=== PATIENT | male | born 1955 | race Caucasian/White ===

== ENCOUNTER 2020-06-14 23:29 | Emergency (ER) | payer OTHER, SELFPAY ==
[2020-06-14 23:34] VITALS: BP 148/87; PULSE 79; RESP 16; TEMP 36.2; O2SAT 93
--- NOTE | 2020-06-14 23:42 | PC.NURSE ---
Pt presents to ED with complaints of hives to trunk and pelvic area. Pt complaining of itching to hands, arms and feet. Pt states onset was yesterday morning. Denies changes in food and soap. 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 Pt able to speak without difficulty and breathing noted to be even and unlabored. Pt alert and oriented x4 and is present at bedside. EDMD presented to bedside.
[2020-06-15 00:01] VITALS: BP 95/62; PULSE 86; RESP 18; O2SAT 94
--- NOTE | 2020-06-15 00:24 | PC.NURSE ---
Pt assisted to restroom via wheelchair. Pt noted to desaturate to 87% on room air. Pt placed on 2 liters of O2 for support. Pt tolerating well with O2 saturation of 95%. Will continue to monitor. remains at bedside. Advised to press call button for assistance.
[2020-06-15 00:29] LABS: Basophils Percent Auto 0.2 % (0.2-1.2); Eosinophils Absolute Auto 0.2 K/mm3 (0-0.3); Eosinophils Percent Auto 1.8 % (0-4.4); Hematocrit 47.1 % (42.0-52.0); Hemoglobin 16.1 g/dL (14.0-18.0); Immature Granulocyte Absolute 0.05 K/mm3 (0.00-0.031); Immature Granulocyte Percent A 0.4 % (0-0.5); Lymphocytes Absolute Auto 3.55 K/mm3 (0.9-3.2); Lymphocytes Percent Auto 26.3 % (18.3-44.2); Mean Corpuscular HGB Conc 34.2 g/dl (32-36); Mean Corpuscular Hemoglobin 29.2 pg (26-34); Mean Corpuscular Volume 85.3 fl (80-100); Mean Platelet Volume 10.3 fl (7.4-10.4); Monocytes Absolute Auto 1.5 K/mm3 (0.1-0.6); Monocytes Percent Auto 10.7 % (2.6-8.5); Neutrophils Absolute Auto 8.2 K/mm3 (1.3-6.7); Neutrophils Percent Auto 60.6 % (45.5-73.1); Platelet Count Result 332 k/mm3 (150-375); Red Blood Count 5.52 M/mm3 (4.6-6.20); Red Cell Distribution Width 13.7 % (11.5-14.5); White Blood Count 13.5 K/mm3 (4.5-10.0)
[2020-06-15] MEDS: methylPREDNISolone SOD SUCC 125 MG VIAL IV PUSH (00:36)
[2020-06-15] MEDS: FAMOTIDINE 20 MG/2 ML VIAL IV PUSH (00:37)
[2020-06-15] MEDS: diphenhydrAMINE HCl INJ 50 MG/ML VIAL IV PUSH (00:37)
[2020-06-15 00:40] VITALS: BP 107/66; PULSE 70; RESP 14; O2SAT 94
[2020-06-15 00:40] LABS: Alanine Aminotransferase 24 U/L (4-50); Albumin Level 3.9 g/dL (3.5-5.1); Alkaline Phosphatase 46 U/L (38-126); Anion Gap 8 mmol/L (8-16); Aspartate Amino Transferase 25 U/L (17-59); Bilirubin,Total 1.3 mg/dL (0.2-1.3); Blood Urea Nitrogen 20 mg/dL (9-20); Calcium 8.6 mg/dL (8.4-10.2); Carbon Dioxide 28 mmol/L (22-30); Chloride 102 mmol/L (98-107); Estimated CRCL calculation 78 ml/min; Estimated Glomerular Filt Rate > 60; Glucose 197 mg/dL (75-110); Lipase 207 U/L (23-300); Potassium 3.1 mmol/L (3.4-5.0); Sodium 138 mmol/L (137-145)
[2020-06-15] MEDS: SODIUM CHLORIDE 0.9% IV 1,000 ML 999 ML IV CONT (00:44)
--- NOTE | 2020-06-15 01:29 | PC.NURSE ---
Pt resting on cart in its lowest position and remains at bedside. Call button and personal items within reach. Pt alert and oriented x4. Vitals stable and pt in no obvious distress. Advised to press call button for assistance.
[2020-06-15 01:37] VITALS: BP 138/77; PULSE 71; RESP 14; O2SAT 99
--- NOTE | 2020-06-15 02:23 | ED.GENADULT ---
HPI - General Adult General Chief complaint: Allergic Reaction Stated complaint: hives/ tongue swelling Time Seen by Provider: 06/14/20 23:42 History of Present Illness HPI narrative: Patient is a 64-year-old gentleman who presents the emergency department for complaint of itching and swelling in his tongue. Patient states also he has had some nausea and vomiting for the last several days and reported that in the last 24 hours initially noticed some redness and some itching on the palms of his hands now started having itching over his body and noticed the back of his tongue felt swollen. Related Data Allergies Allergy/AdvReac Type Severity Reaction Status Date / Time No Known Allergies Allergy Unverified 06/17/19 11:43 Review of Systems Review of Systems: Narrative: A 10 system review of systems was completed on the patient and is negative except for what is stated in the HPI. Nursing and ancillary documentation was reviewed. [facility] Past Medical History Medical History (Updated 06/15/20 @ 02:25 by Colt Hunter MD) Basal cell carcinoma of neck Essential (primary) hypertension Type 2 diabetes mellitus Family History Family History (Updated 09/13/18 @ 07:37 by DOCTOR UNKNOWN) Mother Hypertension Father Family history of lung cancer Social History Social History Smoking status: Never smoker Alcohol intake: never Exam Narrative: Exam Narrative: GENERAL: Well-appearing, well-nourished, and in no acute distress. HEAD: Normocephalic, atraumatic. EYES: PERRLA and EOMI. ENT: Nares clear, no rhinorrhea or epistaxis. Mucous membranes moist. NECK: Supple. CHEST: Clear to auscultation. No respiratory distress. HEART: Regular rate and rhythm. No murmur heard. Normal peripheral pulses. ABDOMEN: Soft, nontender, nondistended, normal active bowel sounds. EXTREMITIES: Normal range of motion. No edema. SKIN: Warm, dry, no there is erythema and urticaria present. NEURO: No focal deficits. Alert and oriented x3. PSYCH: Normal mood and affect. Course Course Emergency Course: Patient was hydrated received standard treatment for allergic reaction and patient had improvement in his symptoms. Vital Signs Vital signs: Vital Signs Temperature 36.2 C L 06/14/20 23:34 Pulse Rate 79 06/14/20 23:34 Respiratory Rate 16 06/14/20 23:34 Blood Pressure 148/87 H 06/14/20 23:34 Pulse Oximetry 93 06/14/20 23:34 Temperature 36.2 C L 06/14/20 23:34 Pulse Rate 70 06/15/20 00:40 Respiratory Rate 14 06/15/20 00:40 Blood Pressure 107/66 06/15/20 00:40 Pulse Oximetry 94 06/15/20 00:40 Medical Decision Making Vital Signs Vital Signs: Vital Signs Temperature 36.2 C L 06/14/20 23:34 Pulse Rate 79 06/14/20 23:34 Respiratory Rate 16 06/14/20 23:34 Blood Pressure 148/87 H 06/14/20 23:34 Pulse Oximetry 93 06/14/20 23:34 Temperature 36.2 C L 06/14/20 23:34 Pulse Rate 70 06/15/20 00:40 Respiratory Rate 14 06/15/20 00:40 Blood Pressure 107/66 06/15/20 00:40 Pulse Oximetry 94 06/15/20 00:40 Lab Data Result diagrams: 06/15/20 00:22 06/15/20 00:23 Labs: Lab Results 06/15/20 06/15/20 Range/Units 00:22 00:23 WBC 13.5 H (4.5-10.0) K/mm3 RBC 5.52 (4.6-6.20) M/mm3 Hgb 16.1 (14.0-18.0) g/dL Hct 47.1 (42.0-52.0) % MCV 85.3 (80-100) fl MCH 29.2 (26-34) pg MCHC 34.2 (32-36) g/dl RDW 13.7 (11.5-14.5) % Plt Count 332 (150-375) k/mm3 MPV 10.3 (7.4-10.4) fl Immature Gran % (Auto) 0.4 (0-0.5) % Neut % (Auto) 60.6 (45.5-73.1) % Lymph % (Auto) 26.3 (18.3-44.2) % Moore % (Auto) 10.7 H (2.6-8.5) % Eos % (Auto) 1.8 (0-4.4) % Baso % (Auto) 0.2 (0.2-1.2) % Lymph # (Auto) 3.55 H (0.9-3.2) K/mm3 Moore # (Auto) 1.5 H (0.1-0.6) K/mm3 Eos # (Auto) 0.2 (0-0.3) K/mm3 Baso # (Auto) 0.0 (0.0-0.1) K/mm3 Abs Immat Gran (auto) 0.05 H (0.00-0.031) K/mm3 Absol
--- NOTE | 2020-06-15 02:38 | PC.NURSE ---
Pt continues resting on cart with at bedside. Pt states he feels better and has been updated on poc. Neither he nor his has any questions or concerns at this time.
[2020-06-15 02:42] VITALS: BP 149/82; PULSE 79; RESP 15; O2SAT 95
[2020-06-15 02:49] VITALS: BP 149/82; PULSE 79; RESP 15; TEMP 36.9; O2SAT 95
--- NOTE | 2020-06-15 02:51 | PC.NURSE ---
Pt dc home with alert, stable and in no obvious distress. Pt able to ambulate from ED without difficulty.
== END 2020-06-15 02:51 | disposition home or self-care (01) ==
PROVIDERS: Emergency Provider Emergency Medicine; PCP Internal Medicine
DX: K52.9 Noninfective gastroenteritis and colitis, unspecified (principal); T78.40XA Allergy, unspecified, initial encounter; I10 Essential (primary) hypertension; E11.9 Type 2 diabetes mellitus without complications; Z79.4 Long term (current) use of insulin; Z85.828 Personal history of other malignant neoplasm of skin
CPT/HCPCS: 36415; 80053; 83690; 85025; 96361; 96374; 96375; 99284; J1200; J2930; J7030

== ENCOUNTER 2020-09-29 06:56 | Outpatient (CLI) | payer OTHER, SELFPAY ==
[2020-09-29 07:38] LABS: Alanine Aminotransferase 36 U/L (4-50); Albumin Level 4.1 g/dL (3.5-5.1); Alkaline Phosphatase 49 U/L (38-126); Anion Gap 7 mmol/L (8-16); Aspartate Amino Transferase 40 U/L (17-59); Bilirubin,Total 1.5 mg/dL (0.2-1.3); Blood Urea Nitrogen 20 mg/dL (9-20); Carbon Dioxide 33 mmol/L (22-30); Chloride 100 mmol/L (98-107); Cholesterol 119 mg/dL (0-200); Estimated Glomerular Filt Rate > 60; Glucose 163 mg/dL (75-110); HDL Direct 24 mg/dL; Potassium 3.5 mmol/L (3.4-5.0); Sodium 140 mmol/L (137-145); Triglycerides 234 mg/dL (<150)
[2020-09-29 07:47] LABS: Hemoglobin A1C 7.2 % (<5.7)
[2020-09-29 07:48] LABS: Basophils Percent Auto 0.5 % (0.2-1.2); Eosinophils Absolute Auto 0.2 K/mm3 (0-0.3); Eosinophils Percent Auto 2.9 % (0-4.4); Hematocrit 43.3 % (42.0-52.0); Hemoglobin 14.2 g/dL (14.0-18.0); Immature Granulocyte Absolute 0.03 K/mm3 (0.00-0.031); Immature Granulocyte Percent A 0.4 % (0-0.5); LDL Cholesterol Direct 46 mg/dL; Lymphocytes Absolute Auto 1.74 K/mm3 (0.9-3.2); Lymphocytes Percent Auto 23.2 % (18.3-44.2); Mean Corpuscular HGB Conc 32.8 g/dl (32-36); Mean Corpuscular Hemoglobin 28.9 pg (26-34); Mean Corpuscular Volume 88.2 fl (80-100); Mean Platelet Volume 10.4 fl (7.4-10.4); Neutrophils Absolute Auto 4.5 K/mm3 (1.3-6.7); Platelet Count Result 230 k/mm3 (150-375); Red Blood Count 4.91 M/mm3 (4.6-6.20); Red Cell Distribution Width 13.4 % (11.5-14.5); White Blood Count 7.5 K/mm3 (4.5-10.0)
== END 2020-09-29 06:57 | disposition home or self-care (01) ==
PROVIDERS: PCP Internal Medicine; Visit Provider Nurse Practitioner
DX: E11.9 Type 2 diabetes mellitus without complications (principal); I10 Essential (primary) hypertension
CPT/HCPCS: 36415; 80053; 80061; 83036; 85025

== ENCOUNTER 2020-12-08 09:52 | Observation (INO) | payer OTHER, SELFPAY ==
[2020-12-08] VITALS (15 sets, daily range): BP systolic 140–167; BP diastolic 78–94; PULSE 70–84; RESP 8–19; TEMP 36.5–36.8; O2SAT 93–99; BMI 32.3
--- NOTE | ~2020-12-08 | CT_ITS ---
EXAMINATION: CT brain wo con EXAM DATE: 12/08/2020 10:31 INDICATION: Facial droop. Drooling. Stroke. TECHNIQUE: Spiral CT of the head was performed without contrast. Axial, coronal and sagittal images were reviewed. The dose-length product (DLP) for this examination was 605.33 mGy-cm. The exposure w as tailored according to patient size, and iterative reconstruction (ASIR) was used as additional dos e reduction technique. There is no prior study for comparison. FINDINGS: There is no acute intraparenchymal hemorrhage. No evidence of intraparenchymal brain mass lesion. No evidence of acute infarction. Please note that initial head CT has limited sensitivity f or small or acute infarctions. There is mild periventricular and subcortical hypodensity, nonspecific but probably related to small vessel ischemic disease. There is mild prominence of the sulci and v entricles related to cerebral atrophy. There is intracranial carotid arteriosclerosis. There are n o extra-axial collections. There is no mass effect or midline shift. The orbits are unremarkable. Soft tissue is unremarkable. The visualized sinuses and mastoid air cells are well aerated. IMPRESSION: 1. No acute intracranial findings. 2. Chronic age related findings. Reviewed, dictated and finalized at location A.
--- NOTE | ~2020-12-08 | XR_ITS ---
EXAMINATION: XR chest 1V EXAM DATE: 12/08/2020 10:32 INDICATION: Facial droop, drooling. Stroke. TECHNIQUE: Portable AP frontal chest x-ray was obtained. There is no prior study for comparison. FINDINGS: Linear right basilar atelectasis. The lungs are otherwise clear. There are no pleural effu sions. The cardiomediastinal silhouette is within normal limits. There is no pneumothorax suspected . The bones and soft tissues are unremarkable. IMPRESSION: Linear right basilar atelectasis. Reviewed, dictated and finalized at location A.
--- NOTE | 2020-12-08 10:07 | ECG_ITS ---
Measurements Intervals [place] Rate: 72 P: 25 GA: 180 QRS: 11 QRSD: 110 T: 43 QT: 393 QTc: 430 Interpretive Statements SINUS RHYTHM NORMAL ECG Electronically Signed On 12-08-2020 11:25:48 CDT by Chon Castro D.O.
[2020-12-08 10:17] LABS: Basophils Absolute Auto 0.1 K/mm3 (0.0-0.1); Basophils Percent Auto 0.7 % (0.2-1.2); Eosinophils Absolute Auto 0.2 K/mm3 (0-0.3); Eosinophils Percent Auto 2.3 % (0-4.4); Hematocrit 43.8 % (42.0-52.0); Hemoglobin 14.9 g/dL (14.0-18.0); Immature Granulocyte Absolute 0.03 K/mm3 (0.00-0.031); Immature Granulocyte Percent A 0.4 % (0-0.5); Lymphocytes Absolute Auto 1.69 K/mm3 (0.9-3.2); Lymphocytes Percent Auto 20.8 % (18.3-44.2); Mean Corpuscular Hemoglobin 29.6 pg (26-34); Mean Corpuscular Volume 87.1 fl (80-100); Mean Platelet Volume 10.3 fl (7.4-10.4); Monocytes Absolute Auto 0.9 K/mm3 (0.1-0.6); Monocytes Percent Auto 10.6 % (2.6-8.5); Neutrophils Absolute Auto 5.3 K/mm3 (1.3-6.7); Neutrophils Percent Auto 65.2 % (45.5-73.1); Platelet Count Result 241 k/mm3 (150-375); Red Blood Count 5.03 M/mm3 (4.6-6.20); Red Cell Distribution Width 13.3 % (11.5-14.5); White Blood Count 8.1 K/mm3 (4.5-10.0)
[2020-12-08 10:28] LABS: Prothrombin Time 12.6 Seconds (11.1-14.7)
[2020-12-08 10:29] LABS: Partial Thromboplastin Time 25.2 SECONDS (22.3-36.8)
[2020-12-08 11:17] LABS: Anion Gap 15 mmol/L (8-16); Blood Urea Nitrogen 18 mg/dL (9-20); Calcium 8.6 mg/dL (8.4-10.2); Carbon Dioxide 25 mmol/L (22-30); Chloride 98 mmol/L (98-107); Estimated CRCL calculation 71 ml/min; Estimated Glomerular Filt Rate > 60; Glucose 299 mg/dL (65-110); Potassium 3.7 mmol/L (3.4-5.0); Sodium 138 mmol/L (137-145)
[2020-12-08 11:29] LABS: Troponin I < 0.012 ng/mL (0.000-0.034)
--- NOTE | 2020-12-08 13:33 | ED.NEUROSD ---
HPI - Neuro Symptoms/Deficit General Chief Complaint: Suspected CVA Stated Complaint: facial drooping 0900 Time Seen by Provider: 12/08/20 12:15 Source: patient and family Mode of arrival: ambulatory Limitations: no limitations History of Present Illness HPI Narrative: 64-year-old male History of hypertension, diabetes Presents for evaluation of new facial asymmetry and possible stroke Patient states that he was in normal health until yesterday when he noticed a small amount of drooling out of the right side of his mouth but no other difficulties Today his noticed a little bit of drooping of the right corner of his mouth while they were eating breakfast around 830 or 9:00 Again, he has no other complaints or symptoms and the asymmetry is really not noticeable at all if he smiles or opens his mouth Related Data Allergies Allergy/AdvReac Type Severity Reaction Status Date / Time No Known Allergies Allergy Unverified 12/08/20 10:10 Review of Systems Review of Systems: All systems reviewed & are unremarkable except as noted in HPI and below Constitutional: Constitutional: Reports no additional constitutional complaints, Denies chills, Denies fatigue, Denies fever(s) and Denies headache(s) Eyes: Eyes: Reports no additional eye complaints and Denies change in vision ENT: Denies headache(s) and Denies hoarseness Cardiovascular: Cardiovascular: Denies chest pain and Denies dyspnea Respiratory: Respiratory: Denies cough and Denies dyspnea Gastrointestinal: Gastrointestinal: Denies abdominal pain, Denies diarrhea and Denies vomiting Genitourinary: Genitourinary: Denies dysuria and Denies urinary frequency Musculoskeletal: Musculoskeletal: Denies deformity, Denies arthralgias, Denies joint swelling and Denies numbness Integumentary/Breasts: Skin/Breast: Denies rash and Denies wounds Neurologic: Denies Abnormal speech present, Denies abnormal gait, Denies headache(s), Denies focal weakness, Denies loss of vision, Denies numbness and Denies Sensory deficit (Neuro) Psychiatric: Psychiatric: Reports no additional psychiatric complaints Endocrine: Endocrine: Reports no additional endocrine complaints Hematologic/Lymphatic: Hematologic/Lymphatic: Reports no additional hematologic/lymphatic complaints Allergic/Immunologic: Allergic/Immunologic: Reports no additional allergic/immunologic complaints PMFSH Past Medical History Medical History (Updated 12/08/20 @ 13:44 by Jaswinder Silva MD) Basal cell carcinoma of neck Essential (primary) hypertension Hyperlipidemia Type 2 diabetes mellitus Family History Family History (Updated 09/13/18 @ 07:37 by DOCTOR UNKNOWN) Mother Hypertension Father Family history of lung cancer Social History Social History Smoking status: Never smoker Alcohol intake: never Exam Const: General: cooperative, no acute distress, alert and awake Orientation/consciousness: patient oriented x3 (alert) HENMT: Head: normocephalic and atraumatic Ears: external ears normal General nose exam: no epistaxis Face and sinus: Flattened naso-labial fold present Mouth: Yes Normal oral and palatal mucosa present Eyes: Conjunctivae: conjunctivae normal EOM: EOMs intact bilaterally Neck: Neck: normal visual inspection, full ROM, supple and no JVD Carotids: other (No bruits) Resp: Effort & Inspection: normal respiratory effort and not labored Auscultation: no rales, no rhonchi, no wheezes and other (BS =) Cardio: Rate: regular rate Rhythm: regular rhythm Heart sounds: no murmurs GI: GI Palp: Yes Soft to palpation and No Tenderness to palpation present (GI) Skin: General skin exam: normal color and no rashes or lesions noted Neuro: General: patient oriented x3 (alert), moves all extremities and other (Normal sensation to light touch) Cranial nerves: Yes Other cranial nerve findings present (Very slight flattening of the right nasolabial fold ) Speech: normal speech, No dys
--- NOTE | 2020-12-08 14:42 | PM.IMHP ---
H&P: HPI History of Present Illness Date/Time: 12/08/20 14:42 This 64 year old male patient with a significant PMH of DM, HTN, and HLD, presented to the ER today with complaints of having facial drooping. The pt. endorses to me that he went for a walk last evening and when he returned home, it was noted that he had a little bit of drool coming out of the right corner of his mouth. He thought he had allergies and was just mouth breathing and didn't notice the drool, and then this morning at 0900, his spouse noticed that the patient had a droop of the right corner of his mouth. He then began to feel that his tongue was thick. He denies any new foods, possible allergic reactions, tearing from the right eye, any headache, change in vision or hearing, chest pain, palpitations, dyspnea, N/V/D, or recent illness. Due to his significant PMH, they decided to come to the ER at this time for evaluation. The last known well time of the patient was prior to 0900 today, now 2 hours and 50 minutes from when his spouse first noted a droop of the mouth. In the ER, workup was peformed and the patient had unremarkable labs with the exception of an elevated glucose of 299, and what appears to be a chronic renal insufficiency with preserved GFR. CT of the head was negative for any acute hemorrhagic findings. CXR showed linear right basilar atelectasis. EKG showed NSR 72 bpm without any ectopy or ischemia. Review of his past chart shows that his last HgbA1C was on 09/29/20 and it was 7.2 at that time. He had his last eye exam in August of 2020. He is being admitted as an observation patient at this time and an MRI for definitive assessement is ordered to guide further treatment plan. Chief Complaint: Right sided facial drooping Review of Systems Review of Systems: All systems reviewed & are unremarkable except as noted in HPI and below [facility] Past Medical History Medical History Basal cell carcinoma of neck Essential (primary) hypertension Hyperlipidemia Type 2 diabetes mellitus Family History Family History Mother Hypertension Father Family history of lung cancer Social History Social History Smoking status: Never smoker Alcohol intake: never Meds Home Medications and Allergies Home Medications Medication Instructions Recorded Confirmed Type pen needle, diabetic 31 gauge x #500 ea 03/20/20 05/14/20 Rx 3/16 dulaglutide 3 mg/0.5 mL 3 mg SUBCUT WEEKLY #6 ml 05/14/20 05/14/20 Rx subcutaneous pen injector insulin glargine 100 unit/mL (3 70 unit SUB-Q QPM #60 ml 07/18/20 Rx mL) subcutaneous pen losartan 100 1 tablet PO DAILY #90 tablet 09/17/20 Rx mg-hydrochlorothiazide 12.5 mg tablet atorvastatin 40 mg tablet 40 mg PO DAILY #90 tablet 10/15/20 Rx glipizide 10 mg tablet 20 mg PO BID #360 tablet 10/15/20 Rx metformin 1,000 mg tablet 1,500 mg PO DAILY #225 tablet 11/06/20 Rx amlodipine 10 mg tablet 10 mg PO DAILY #90 tablet 11/14/20 Rx atenolol 50 mg tablet 50 mg PO DAILY #90 tablet 11/20/20 Rx Allergies Allergy/AdvReac Type Severity Reaction Status Date / Time No Known Allergies Allergy Unverified 12/08/20 10:10 Vital Signs Vital Signs - 24 hr 12/08/20 10:05 12/08/20 10:07 12/08/20 10:08 Temperature Pulse Rate 73 75 73 Respiratory Rate 18 13 14 Blood Pressure 167/94 H 167/94 H Pulse Oximetry 96 96 95 12/08/20 10:15 12/08/20 10:16 12/08/20 10:34 Temperature Pulse Rate 70 72 72 Respiratory Rate 13 18 13 Blood Pressure 140/82 Pulse Oximetry 95 94 95 12/08/20 10:35 12/08/20 10:45 12/08/20 11:00 Temperature Pulse Rate 73 72 71 Respiratory Rate 15 13 12 Blood Pressure 164/80 H Pulse Oximetry 96 93 93 12/08/20 11:15 12/08/20 11:16 12/08/20 11:32 Temperature Pulse Rate 73 72 84 Respiratory Rate 13 8
--- NOTE | 2020-12-08 16:34 | ADMGEN ---
This patient, Gold He, was admitted to 3 Med Surg Room 302-01. Patient/family oriented to hospital policies and general routines including ID bracelet, bed and alarms, visiting hours, pain management, procedures, bathroom and other care routines, personal items, smoking policy, room service/diet, and visiting hours. Information on how to activate the Rapid Response Team has been discussed. Patient/Family are encouraged to report perceived risks to care and to ask questions if they do not understand what they are told or what they should do.
[2020-12-08 16:57] LABS: Glucose Point of Care 115 mg/dl (65-105)
--- NOTE | 2020-12-08 19:20 | PC.NURSE ---
Brenda talked with patient. She discussed the benefit of staying for the echo and MRI tomorrow. Patient states that he is leaving. Olive stated that it would be against medical advise. Patient states that he understands. Patient states ride is here and is leaving floor.
--- NOTE | 2020-12-08 19:40 | PM.EVENT ---
Event Note Event Note Event Note: I was called into the room because the patient wanted to sign out against medical advice. The patient was very upset that he had not eaten all day and he is diabetic. There was the lunch box in his room that we offered him to E and the patient stated the ordered food and dietary forgot to bring it up. The patient was also upset that he did not get his home medications. I explained that Tresiba is non formulary and I also called pharmacy and for the patient in the room and they explained to him that we do not offer Tresiba here. I offered the patient the opportunity to have somebody bring it from home. I also explained that we are doing sliding scale insulin. I also explained that an MRI is scheduled for tomorrow and that we are holding his metformin due to the diet he will receive. The patient stated that he would go home tonight and eat and take his own medicine and that he would return in the morning 1st test. I explained that if he leaves that he would need to sign out against medical advice. I explained that I would not feel comfortable allowing the patient to be discharged at this point. I also explained that we do not have a neurologist available to him this weekend. The patient is requesting to see a neurologist. The patient does not understand why he did not have an MRI and ankle today. I explained that today is Thursday and that there may not be full services on the weekend. The patient stated that he plans on reporting the staff adverse here. I explained that there is a patient advocate line that he can call and he expresses concerns. We attempted to rectify his concerns without any resolution. The patient still continued disease going to sign out against medical advice. The patient then requested that he have the IV removed and is telemetry removed. Patient signed his paperwork for leaving against medical advice. The patient stated how can I get my MRI MT echo. I explained that he may need to talk to his primary care doctor.
== END 2020-12-08 19:23 | disposition left against medical advice (07) ==
LOC: ANHED 13:44 → ANH3MEDSUR 15:00
PROVIDERS: Emergency Medicine; Admitting Provider Internal Medicine Nephrology; Emergency Provider Emergency Medicine; PCP Internal Medicine; Visit Provider Internal Medicine Nephrology
DX: R29.810 Facial weakness (principal); E11.9 Type 2 diabetes mellitus without complications; I10 Essential (primary) hypertension; E78.5 Hyperlipidemia, unspecified; Z79.4 Long term (current) use of insulin
CPT/HCPCS: 36415; 70450; 71045; 80048; 82948; 84484; 85025; 85610; 85730; 93005; 99285; G0378

== ENCOUNTER 2020-12-09 07:45 | Inpatient (IN) | payer OTHER, SELFPAY ==
[2020-12-09] VITALS (19 sets, daily range): BP systolic 149–181; BP diastolic 78–86; PULSE 65–82; RESP 14–20; TEMP 36.6–36.8; O2SAT 94–98; BMI 32.3
--- NOTE | ~2020-12-09 | XR_ITS ---
EXAMINATION: XR chest 1V portable EXAM DATE: 12/09/2020 08:30 INDICATION: Slurred speech. Facial droop, drooling. TECHNIQUE: Portable AP frontal chest x-ray was obtained. Comparison is made to prior examination from 12/08. FINDINGS: Linear right basilar atelectasis. The lungs are otherwise clear. There are no pleural effu sions. The cardiomediastinal silhouette is within normal limits. There is no pneumothorax suspected . The bones and soft tissues are unremarkable. IMPRESSION: Linear right basilar atelectasis unchanged. Reviewed, dictated and finalized at location A.
--- NOTE | ~2020-12-09 | CT_ITS ---
EXAMINATION: CT diagnostic chest w con EXAM DATE: 12/10/2020 13:51 INDICATION: Adenopathy, identified on CT carotid angiogram. TECHNIQUE: Spiral CT of the chest following intravenous injection of 75 mL Omnipaque 350. Axial, cor onal and sagittal images of the chest were reviewed. Coronal maximum intensity pixel images of chest reviewed. The dose-length product (DLP) for this examination was 500.90 mGy-cm. The exposure was t ailored according to patient size (auto mA exposure control), and iterative reconstruction (ASIR) was used as additional dose reduction technique. There is no prior study for comparison. FINDINGS: There is mediastinal and bilateral hilar lymphadenopathy. Some of these lymph nodes have fa int calcification within, which is more common with granulomatous process than malignancy, although t reated lymphoma and rarely untreated metastatic disease can have this appearance. One of the larger l ymph nodes is precarinal measuring 2.4 x 2.0 cm. One of the larger right hilar lymph nodes measures 1 .8 x 1.3 cm. Prevascular lymph node measuring 1.6 x 1.0 cm. There is a right upper lobe nodule which could be intrafissural lymph node given the other lymph nodes, measuring 5 x 8 mm. No central pulmonary emboli. There are no pleural or pericardial effusions. Tracheobronchial tree is patent. There is no pneumothorax. Heart normal in size. There are dense coronary arteries, c ould be severe coronary arterial sclerosis and/or coronary artery stent(s), which are difficult to di stinguish due to cardiac motion on this non-gated exam. Correlate with cardiac history and consider c ardiology consult if not recently evaluated. Upper abdomen is unremarkable. There is mild thoracic spondylosis without osteoblastic or osteolytic lesions identified. IMPRESSION: Mediastinal, hilar lymphadenopathy. Favor benign granulomatous process over cancer for un derlying etiology. Possible management options include pulmonary consult, PET/CT, 3 month follow-up c hest CT. Reviewed, dictated and finalized at location B. IMPRESSION: Mediastinal, hilar lymphadenopathy. Favor benign granulomatous proc ess over cancer for underlying etiology. Possible management options include pu lmonary consult, PET/CT, 3 month follow-up chest CT.
--- NOTE | ~2020-12-09 | MR_ITS ---
EXAMINATION: MR brain/brain stem wo/w con EXAM DATE: 12/09/2020 13:55 INDICATION: Stroke. Slurred speech. Right facial droop. TECHNIQUE: Magnetic resonance imaging (MRI) of the brain/brain stem obtained without contrast. Sagit lala T1, axial diffusion, gradient echo (T2*), T1, T2, FLAIR sequences obtained. Patient was then inj ected with 20 cc intravenous Multihance contrast. Axial and coronal postcontrast T1 weighted sequence s obtained. Correlation is made to head angiogram earlier same date. FINDINGS: There is small acute left basal ganglia lacunar infarction. Mild microangiopathy and cerebr al atrophy. No brain mass, extra-axial collections, acute intracranial hemorrhage or obstructive hydr ocephalus. The orbits and soft tissues are unremarkable. There are no areas of abnormal enhancement o n the post contrast images. IMPRESSION: Left basal ganglia acute lacunar infarction. Reviewed, dictated and finalized at location A.
--- NOTE | ~2020-12-09 | CT_ITS ---
EXAMINATION: CTA brain carotid EXAM DATE: 12/09/2020 09:01 INDICATION: Facial droop, slurred speech. Stroke. TECHNIQUE: Noncontrast head CT. Spiral CTA of the carotid arteries was performed with intravenous i njection 100 cc of Omnipaque 350. Axial, coronal, sagittal reformatted images reviewed. Additional r eformatted images created on dedicated 3-D workstation. NASCET comparable standard used to assess th e degree of arterial stenosis. Spiral CT angiogram cerebral arteries performed with the same intrave nous injection of contrast. Source images of the brain CTA transferred to dedicated workstation for 3 -D rotational image creation. Coronal, sagittal maximum intensity pixel images also reviewed. The d ose-length product (DLP) for this examination was 1818.88 mGy-cm. The exposure was tailored accordi ng to patient size, and iterative reconstruction (ASIR) was used as additional dose reduction techniq ue. Comparison is made to prior examination from 12/08/2020, head CT. FINDINGS: There is small left basal ganglia lacunar hypodensity, more discrete than on yesterday's ex am. This is age lacunar infarction indeterminate, potentially could be an acute finding. No larger te rritorial infarction. No acute intracranial hemorrhage, extra-axial collections, brain mass or obstru ctive hydrocephalus. There is mild bilateral carotid bulb arterial sclerosis with 0% stenosis bilaterally. There is no car otid or vertebral basilar arterial dissection or fibromuscular dysplasia. There are no cerebral arter y aneurysms. There is symmetric cerebral artery arborization. The sagittal, transverse and sigmoid si nuses enhance normally, no venous sinus thrombosis. Internal cerebral veins also enhance normally. Incidental Findings: Mediastinal lymphadenopathy with a precarinal lymph node measuring 2.4 x 1.9 cm, other enlarged prevascular, mediastinal lymph nodes. Differential diagnosis includes lymphoma, metas tatic disease, sarcoidosis, reactive etiology. No cervical lymphadenopathy. Moderate cervical spondyl osis. IMPRESSION: 1. Better defined left basal ganglia lacunar infarction, possibly acute. Are patient's symptoms on t he right? 2. Mediastinal lymphadenopathy, possible underlying etiologies including lymphoma, metastatic diseas e, sarcoidosis, reactive from other granulomatous process or infection. 3. Bilateral carotid bulb 0% stenosis. Reviewed, dictated and finalized at location A. IMPRESSION: 1. Better defined left basal ganglia lacunar infarction, possibly acute. Are p atient's symptoms on the right? 2. Mediastinal lymphadenopathy, possible underlying etiologies including lymph osmin, metastatic disease, sarcoidosis, reactive from other granulomatous process or infection. 3. Bilateral carotid bulb 0% stenosis.
--- NOTE | ~2020-12-09 | US_ITS ---
EXAMINATION: US carotid duplex BI EXAM DATE: 12/10/2020 15:59 INDICATION: Left basal ganglia stroke. TECHNIQUE: Grayscale, color and pulsed Doppler images of the cervical carotid arteries were obtained . The degree of vessel stenosis is placed in one of the following categories: normal, <50% stenosis, 50-69% stenosis, >=70% stenosis but less than near-occlusion, near-occlusion, or occlusion. Note that percent stenosis relative to normal distal artery lumen diameter is indirectly measured from velocit y measurements as described by Russ, et al. Radiology 2003; 229:340-346. There is no prior study fo r comparison. FINDINGS: RIGHT SIDE: Right common carotid artery peak systolic velocity (PSV in cm/s): 105 Right bulb/internal carotid artery peak systolic velocity (PSV in cm/s): 74 Right internal carotid artery end diastolic velocity (EDV in cm/s): 21 Right ICA/CCA peak systolic ratio: 0.7 Right external carotid artery peak systolic velocity (PSV in cm/s): 92 Right vertebral artery antegrade flow: yes There is mild scattered carotid plaque. Velocity and Doppler waveforms in the common and internal carotid arteries is normal. LEFT SIDE: Left common carotid artery peak systolic velocity (PSV in cm/s): 130 Left bulb/internal carotid artery peak systolic velocity (PSV in cm/s): 85 Left internal carotid artery end diastolic velocity (EDV in cm/s): 19 Left ICA/CCA peak systolic ratio: 0.7 Left external carotid artery peak systolic velocity (PSV in cm/s): 112 Left vertebral artery antegrade flow: yes There is mild carotid bulb plaque. Velocity and Doppler waveforms in the common and internal carotid arteries is normal. IMPRESSION: 1. Less than 50 percent stenosis in the right internal carotid artery. 2. Less than 50 percent stenosis in the left internal carotid artery. > Reviewed, dictated and finalized at location B.
--- NOTE | 2020-12-09 08:17 | ECG_ITS ---
Measurements Intervals [place] Rate: 70 P: 14 TX: 197 QRS: -23 QRSD: 119 T: 46 QT: 402 QTc: 435 Interpretive Statements SINUS RHYTHM INTRAVENTRICULAR CONDUCTION DELAY DELAYED PRECORDIAL R/S TRANSITION BASELINE WANDER- II, III, AVR, AVF, V3-V6 BORDERLINE ECG Electronically Signed On 12-09-2020 12:05:29 CDT by Chon Castor D.O.
--- NOTE | 2020-12-09 08:19 | ED.NEUROSD ---
HPI - Neuro Symptoms/Deficit General Chief Complaint: Suspected CVA Stated Complaint: ?stroke? Time Seen by Provider: 12/09/20 08:16 Source: patient, RN notes reviewed and old records reviewed Mode of arrival: ambulatory Limitations: no limitations History of Present Illness HPI Narrative: Patient is 64 years old white male drove himself to the emergency room from home complaining of increased slurred speech and right facial drooping compared to yesterday. Patient had slight slurred speech and right facial drooping is started 2 days ago. Came to our emergency room yesterday and signed AMA. Patient believes that when he woke up this morning from sleep noticed that his slurred speech and right facial drooping is worse than yesterday. Patient also noticed that his signature is a little bit off but his gross motor is okay. Patient denies any tingling, numbness or focal weakness, dizziness, headache, chest pain or shortness of breath. Related Data Home Medications Medication Instructions Recorded Confirmed insulin glargine [Lantus Solostar 70 unit SUB-Q HS 12/08/20 12/08/20 U-100 Insulin] Allergies Allergy/AdvReac Type Severity Reaction Status Date / Time No Known Allergies Allergy Verified 12/09/20 07:54 Review of Systems Review of Systems: CONSTITUTIONAL: Denies fever, chills, or sweats. EYES: Denies visual changes, redness, or discharge. ENT: Denies rhinorrhea, congestion, sore throat, or otalgia. CARDIOVASCULAR: Denies chest pain, palpitations, or edema. RESPIRATORY: Denies cough or dyspnea. GASTROINTESTINAL: Denies abdominal pain, nausea, vomiting, or diarrhea. GENITOURINARY: Denies dysuria or hematuria. SKIN: Denies rash or itching. MUSCULOSKELETAL: Denies back pain, joint pain, or myalgia. NEUROLOGIC: Denies headache, numbness, or weakness. PSYCHIATRIC: Denies anxiety or depression. [facility] Past Medical History Medical History Basal cell carcinoma of neck Essential (primary) hypertension Hyperlipidemia Type 2 diabetes mellitus Family History Family History Mother Hypertension Father Family history of lung cancer Hypertension Social History Social History Smoking status: Never smoker Alcohol intake: never Substance use: never Spiritual care concerns: No Exam Narrative: General appearance: Well-developed, well-nourished Skin: Normal color Head: Normocephalic, nontraumatic Eyes: Clear conjunctiva ENT: Oropharynx normal, ears normal, nose normal Neck: Supple, nontender Chest and respiratory: Airway patent, no respiratory distress, no accessory muscle use Heart: Regular rate/rhythm Abdomen: Soft, nontender, no organomegaly, quiet bowel sounds Vascular: Normal peripheral pulses, normal capillary refill. Musculoskeletal: Normal range of motion, nontender back Neurologic: Alert and oriented ?3, [employer] is normal as tested, no gross motor deficit, mild right facial drooping, slurred speech, Course Course Emergency Course: Stable Vital Signs Vital signs: Vital Signs Temperature 36.8 C 12/09/20 07:47 Pulse Rate 80 12/09/20 07:47 Respiratory Rate 20 12/09/20 07:47 Blood Pressure 166/78 H 12/09/20 07:47 Pulse Oximetry 98 12/09/20 07:47 Temperature 36.8 C 12/09/20 07:47 Pulse Rate 67 12/09/20 10:45 Respiratory Rate 16 12/09/20 10:45 Blood Pressure 161/78 H 12/09/20 10:45 Pulse Oximetry 98 12/09/20 10:45 MDM - Neuro Symptoms/Deficit MDM Narrative Medical decision making narrative: Acute CVA Differential Diagnosis Differential di
[2020-12-09 08:46] LABS: Basophils Absolute Auto 0.1 K/mm3 (0.0-0.1); Basophils Percent Auto 0.6 % (0.2-1.2); Eosinophils Absolute Auto 0.1 K/mm3 (0-0.3); Eosinophils Percent Auto 0.8 % (0-4.4); Hematocrit 44.1 % (42.0-52.0); Hemoglobin 14.8 g/dL (14.0-18.0); Immature Granulocyte Absolute 0.04 K/mm3 (0.00-0.031); Immature Granulocyte Percent A 0.5 % (0-0.5); Lymphocytes Absolute Auto 1.35 K/mm3 (0.9-3.2); Lymphocytes Percent Auto 15.8 % (18.3-44.2); Mean Corpuscular HGB Conc 33.6 g/dl (32-36); Mean Corpuscular Volume 86.5 fl (80-100); Mean Platelet Volume 10.5 fl (7.4-10.4); Monocytes Absolute Auto 0.5 K/mm3 (0.1-0.6); Monocytes Percent Auto 6.2 % (2.6-8.5); Neutrophils Absolute Auto 6.5 K/mm3 (1.3-6.7); Neutrophils Percent Auto 76.1 % (45.5-73.1); Platelet Count Result 238 k/mm3 (150-375); Red Cell Distribution Width 13.2 % (11.5-14.5); White Blood Count 8.5 K/mm3 (4.5-10.0)
[2020-12-09 08:58] LABS: INR 0.9; Partial Thromboplastin Time 24.1 SECONDS (22.3-36.8); Prothrombin Time 12.5 Seconds (11.1-14.7)
[2020-12-09 08:59] LABS: Alanine Aminotransferase 38 U/L (4-50); Albumin Level 4.5 g/dL (3.5-5.1); Alkaline Phosphatase 57 U/L (38-126); Anion Gap 12 mmol/L (8-16); Aspartate Amino Transferase 37 U/L (17-59); Bilirubin,Total 1.6 mg/dL (0.2-1.3); Blood Urea Nitrogen 19 mg/dL (9-20); Carbon Dioxide 26 mmol/L (22-30); Chloride 98 mmol/L (98-107); Estimated CRCL calculation 85 ml/min; Estimated Glomerular Filt Rate > 60; Glucose 266 mg/dL (65-110); Potassium 3.6 mmol/L (3.4-5.0); Sodium 136 mmol/L (137-145)
[2020-12-09 09:06] LABS: Troponin I < 0.012 ng/mL (0.000-0.034)
[2020-12-09] MEDS: ASPIRIN 81 MG CHEWABLE TABLET 324 MG PO (11:41)
--- NOTE | 2020-12-09 12:51 | ADMGEN ---
This patient, Gold He, was admitted to 3 Med Surg Room 319-01. Patient/family oriented to hospital policies and general routines including ID bracelet, bed and alarms, visiting hours, pain management, procedures, bathroom and other care routines, personal items, smoking policy, room service/diet, and visiting hours. Information on how to activate the Rapid Response Team has been discussed. Patient/Family are encouraged to report perceived risks to care and to ask questions if they do not understand what they are told or what they should do.
--- NOTE | 2020-12-09 13:21 | PM.IMHP ---
H&P: HPI History of Present Illness Date/Time: 12/09/20 13:21 this is a 64-year-old male patient who was admitted yesterday and signed out against medical advice yesterday. The patient drove himself back to the emergency room today with increased slurred speech and increased right facial drooping. Yesterday's CT scan showed nothing acute. Today the head neck CTA was read as. 1Better defined left basal ganglia lacunar infarction, possibly acute. Are patient's symptoms on the right? 2. Mediastinal lymphadenopathy, possible underlying etiologies including lymphoma, metastatic disease, sarcoidosis, reactive from other granulomatous process or infection. 3. Bilateral carotid bulb 0% stenosis. The patient has had slurred speech and right facial drooping that started 2 days ago. The patient tells me that he did take 4 baby aspirin today. He also tells me that he has not eaten today and he is diabetic. His blood sugars 266. Chest x-ray was read as linear right basilar atelectasis unchanged. Patient is being admitted to inpatient services on the date of service of 12/09/2020 Chief Complaint: Right-sided droop Review of Systems Review of Systems: All systems reviewed & are unremarkable except as noted in HPI and below Constitutional: Constitutional: Reports as per HPI and Reports no additional constitutional complaints Eyes: Eyes: Reports as per HPI and Reports no additional eye complaints ENT: Reports system reviewed and no additional complaints, except as documented and Reports Normal hearing present Cardiovascular: Cardiovascular: Reports no additional cardiovascular complaints Respiratory: Respiratory: Reports no additional respiratory complaints and Reports no additional respiratory complaints Gastrointestinal: Gastrointestinal: Reports as per HPI and Reports no additional gastrointestinal complaints Musculoskeletal: Musculoskeletal: Reports no additional musculoskeletal complaints Integumentary/Breasts: Skin/Breast: Reports system reviewed and no additional complaints, except as docu and Reports as per HPI Neurologic: Reports system reviewed and no additional complaints, except as documented, Reports as per HPI and Reports Normal hearing present Psychiatric: Psychiatric: Reports no additional psychiatric complaints and Reports as per HPI Endocrine: Endocrine: Reports no additional endocrine complaints Hematologic/Lymphatic: Hematologic/Lymphatic: Reports no additional hematologic/lymphatic complaints Allergic/Immunologic: Allergic/Immunologic: Reports no additional allergic/immunologic complaints FOR[facility]LY [facility], [facility] Past Medical History Medical History (Updated 12/09/20 @ 13:36 by Brenda Massey NP) Basal cell carcinoma of neck Essential (primary) hypertension Hyperlipidemia Type 2 diabetes mellitus Surgical History Surgical History (Updated 12/09/20 @ 13:36 by Brenda Massey NP) H/O hand surgery Right pinky Family History Family History (Updated 12/09/20 @ 13:37 by Brenda Massey NP) Mother Hypertension Carotid artery disease Father Family history of lung cancer Hypertension Heart disease Acute myocardial infarction Social History Social History (Updated 12/09/20 @ 13:38 by Brenda Massey NP) Social History: The patient lives with his who is the durable power city attorney for healthcare. The patient desires to be a full code. The patient has no children. 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 The patient is a lifelong nonsmoker. He does not use any alcohol marijuana or illicit drugs. Smoking status: Never smoker Alcohol intake: never Substance use: never Spiritual care concerns: No Meds Home Medications and Allergies Home Medications Medication Instructions Recorded Confirmed Type pen needle, diabetic 31 gauge x #500 ea 03/20/20 05/14/20 Rx 3/16 dulaglutide 3 mg/0.5 mL 3 mg SUBCUT WEEKLY #6 ml 05/14/20 12/08/20 Rx subcutaneous pen injector losartan
--- NOTE | 2020-12-09 13:22 | PC.NURSE ---
to MRI per w/c
--- NOTE | 2020-12-09 17:11 | PHAR ---
[facility] PREFILLED SYRINGE
[2020-12-09 17:13] LABS: Glucose Point of Care 212 mg/dl (65-105)
[2020-12-09] MEDS: glipiZIDE 5 MG TABLET 20 MG PO (17:30)
[2020-12-09] MEDS: INSULIN ASPART (*BKC) 100 UNITS/ML SUB-Q (17:30)
[2020-12-09] MEDS: hydroCHLOROthiazide 12.5 MG CAPSULE PO (21:01)
[2020-12-09] MEDS: amLODIPine BESYLATE 5 MG TABLET 10 MG PO (21:01)
[2020-12-09] MEDS: INSULIN GLARGINE (*BKC) 100 UNITS/ML 70 UNITS SUB-Q (21:06)
[2020-12-10] VITALS (7 sets, daily range): BP systolic 156–165; BP diastolic 80–86; PULSE 56–82; RESP 16–20; TEMP 36.8–37.1; O2SAT 94–100
--- NOTE | 2020-12-10 | ECHO_ITS ---
Patient Info Name: Gold He Age: 64 years : 1955 Gender: Male Ht: 72 in Wt: 238 lbs BSA: 2.37 m2 HR: 69 bpm BP: 156 / 86 mmHg Technical Quality: Good Exam Date: 12/10/2020 11:35 AM Exam Location: [facility] Patient Status: Inpatient Admit Date: 12/09/2020 Staff Ordering Physician: Brenda Massey NP Applied Statistician: Sharon Pacheco RDCS Attending Provider: Андрей Echevarria MD Referring Physician: Shilpa TATE; Exam Type: CA echo doppler color flow Study Info Indications - CVA Complete two-dimensional, color flow and Doppler transthoracic echocardiogram is performed. Summary 1. Complete two-dimensional, color flow and Doppler transthoracic echocardiogram is performed. 2. Left ventricular chamber dimension is normal. 3. Left ventricular systolic function is normal, estimated at 65-70%. 4. There is mildly increased left ventricular wall thickness. 5. The left ventricular diastolic function is grade I diastolic dysfunction. 6. E/e' 9 is minimally elevated. 7. There is moderate aortic valve sclerosis. 8. There is trace tricuspid valve regurgitation. 9. No pulmonary hypertension, estimated pulmonary arterial systolic pressure is 17 mmHg. Left Ventricle E/e' 9 is minimally elevated. Left ventricular chamber dimension is normal. Left ventricular systolic function is normal, estimated at 65-70%. There is mildly increased left ventricular wall thickness. The left ventricular diastolic function is grade I diastolic dysfunction. Right Ventricle Right ventricular chamber dimension is normal. Right ventricular systolic function is normal. Left Atria Left atrial chamber dimension is normal. Right Atria Right atrial chamber dimension is normal. Aortic Valve The aortic valve is trileaflet. There is moderate aortic valve sclerosis. There is no aortic valve stenosis. There is no aortic valve regurgitation. Pulmonic Valve There is no pulmonic regurgitation. Mitral Valve There is no mitral valve stenosis. There is no mitral valve regurgitation. Tricuspid Valve There is trace tricuspid valve regurgitation. No pulmonary hypertension, estimated pulmonary arterial systolic pressure is 17 mmHg. Pericardium/Pleural There is no pericardial effusion. Inferior Vena Cava Normal inferior vena cava with >50% collapse upon inspiration consistent with normal right atrial pressure, 5 mmHg. Aorta The aortic root size at the sinus of Valsalva is normal. Left Ventricular Outflow Tract Name Value Normal LVOT 2D LVOT Diameter 2.1 cm LVOT Doppler LVOT Peak Gradient 4 mmHg LVOT Mean Gradient 3 mmHg LVOT VTI 21 cm LVOT VTI/AV VTI Ratio 0.8 LVOT Stroke Volume 72 ml LVOT CO 17.0 l/min LVOT CI 7.1 l/min/m2 Pulmonic Valve Name Value Normal
[2020-12-10 01:40] LABS: Glucose Point of Care 195 mg/dl (65-105)
[2020-12-10 06:57] LABS: Basophils Absolute Auto 0.1 K/mm3 (0.0-0.1); Basophils Percent Auto 0.7 % (0.2-1.2); Eosinophils Absolute Auto 0.2 K/mm3 (0-0.3); Eosinophils Percent Auto 2.2 % (0-4.4); Hematocrit 46.4 % (42.0-52.0); Hemoglobin 15.2 g/dL (14.0-18.0); Immature Granulocyte Absolute 0.04 K/mm3 (0.00-0.031); Immature Granulocyte Percent A 0.5 % (0-0.5); Lymphocytes Absolute Auto 1.89 K/mm3 (0.9-3.2); Mean Corpuscular HGB Conc 32.8 g/dl (32-36); Mean Corpuscular Hemoglobin 28.5 pg (26-34); Mean Corpuscular Volume 86.9 fl (80-100); Monocytes Absolute Auto 0.7 K/mm3 (0.1-0.6); Monocytes Percent Auto 9.8 % (2.6-8.5); Neutrophils Absolute Auto 4.7 K/mm3 (1.3-6.7); Neutrophils Percent Auto 61.8 % (45.5-73.1); Platelet Count Result 262 k/mm3 (150-375); Red Blood Count 5.34 M/mm3 (4.6-6.20); Red Cell Distribution Width 13.3 % (11.5-14.5); White Blood Count 7.6 K/mm3 (4.5-10.0)
[2020-12-10 07:02] LABS: Lactate Dehydrogenase 420 U/L (313-618); Magnesium 1.8 mg/dL (1.6-2.3)
[2020-12-10 08:06] LABS: Glucose Point of Care 183 mg/dl (65-105)
--- NOTE | 2020-12-10 08:49 | PM.CNPUL ---
Assessment and Plan Assessment and plan (1) Lymphadenopathy: Code(s): R59.1 - Generalized enlarged lymph nodes Status: Acute Assessment and Plan: Patient is a never smoker with no occupational risk factors and with no respiratory limitations in his activity of daily living and currently no respiratory symptoms suggestive of infection, cancer or connective tissue disease. He did have COVID in January of 2020. Patient was found to have mediastinal adenopathy on CT scan of the head and neck. I will obtain a high-resolution CT scan of the chest looking for any additional pathologic changes. Further recommendations to follow. History of Present Illness History of Present Illness Consult date: 12/10/20 Reason for consult: other (mediastinal adenopathy) Chief complaint: Acute CVA, Mediastinal Lymphadenopathy Narrative: 64-year-old male with a history of hypertension, diabetes, COVID in January of 2020, melanoma on his neck 3 years ago status post 2 Mohs procedures with clear margins who presents with a left basal ganglia stroke with altered speech, and lack of coordination in his right upper extremity. Patient had a CT of the head and neck demonstrating mediastinal lymphadenopathy. Patient states he has no respiratory limitations in his activities of daily living and is able to walk 3 miles without any shortness of breath. Patient denies any shortness of breath, cough, phlegm production, hemoptysis, chest pains. Patient denies any weight loss, rashes, arthritis. Patient denies previous chemotherapy or radiation. Patient denies any use of amiodarone or nitrofurantoin. Patient is a never smoker. Patient was exposed to secondhand smoke through both of his parents but none now. 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 Patient tells me he had skin cancer 3 years ago and had 2 Mohs procedures on his neck in which they removed the cancer and he tells me there were clean margins. Patient follows up with a drafter apprentice and recently had an atypical mole removed. Patient denies any chemotherapy or radiation. Review of Systems Review of Systems: All systems reviewed & are unremarkable except as noted in HPI and below Eyes: Eyes: Reports no additional eye complaints ENT: Reports system reviewed and no additional complaints, except as documented Cardiovascular: Cardiovascular: Reports no additional cardiovascular complaints Respiratory: Respiratory: Reports no additional respiratory complaints Gastrointestinal: Gastrointestinal: Reports no additional gastrointestinal complaints Musculoskeletal: Musculoskeletal: Reports no additional musculoskeletal complaints Integumentary/Breasts: Skin/Breast: Reports system reviewed and no additional complaints, except as docu Neurologic: Reports system reviewed and no additional complaints, except as documented Psychiatric: Psychiatric: Reports no additional psychiatric complaints Endocrine: Endocrine: Reports no additional endocrine complaints [facility] Past Medical History Medical History (Updated 12/09/20 @ 13:36 by Brenda Massey NP) Basal cell carcinoma of neck Essential (primary) hypertension Hyperlipidemia Type 2 diabetes mellitus Surgical History Surgical History (Updated 12/09/20 @ 13:36 by Brenda Massey NP) H/O hand surgery Right pinky Family History Family History (Updated 12/09/20 @ 13:37 by Brenda Massey NP) Mother Hypertension Carotid artery disease Father Family history of lung cancer Hypertension Heart disease Acute myocardial infarction Social History Social History (Updated 12/09/20 @ 13:38 by Brenda Massey NP) Social History: The patient lives with his who is the durable power employee benefits attorney for healthcare. The patient desires to be a full code. The patient has no child
[2020-12-10] MEDS: ATORVASTATIN 40 MG TABLET PO (08:56)
[2020-12-10] MEDS: LOSARTAN POTASSIUM 100 MG TABLET PO (08:56)
[2020-12-10] MEDS: glipiZIDE 5 MG TABLET 20 MG PO ×2 (08:56→16:45)
[2020-12-10 09:37] LABS: Free T4 Free Thyroxine Reflex 0.91 ng/dL (0.78-2.19)
[2020-12-10 10:04] LABS: Alanine Aminotransferase 40 U/L (4-50); Albumin Level 4.6 g/dL (3.5-5.1); Alkaline Phosphatase 56 U/L (38-126); Anion Gap 13 mmol/L (8-16); Aspartate Amino Transferase 35 U/L (17-59); Bilirubin,Total 1.7 mg/dL (0.2-1.3); Blood Urea Nitrogen 19 mg/dL (9-20); Calcium 9.4 mg/dL (8.4-10.2); Carbon Dioxide 30 mmol/L (22-30); Chloride 99 mmol/L (98-107); Estimated CRCL calculation 72 ml/min; Estimated Glomerular Filt Rate > 60; Glucose 134 mg/dL (65-110); Potassium 3.4 mmol/L (3.4-5.0); Sodium 142 mmol/L (137-145)
--- NOTE | 2020-12-10 10:08 | WPDNEURCNPN ---
Assessment and Plan Additional Plan subcortical stroke /on aspirin/ and plavix for 6 weeks/ Consult date: 12/10/20 Time Seen: 11:00 HPI: Gold He is a 64 year old male has been admitted to the hospital through the emergency room where he had signed out against medical advice earlier he came in for the complaints of increasing slurred speech and the drooping on the right side of the face his initial CT scan was negative but when he really admitted to the emergency room to the hospital CTA was abnormal with lacunar infarct of the left basal ganglia in addition he was found to have mediastinal lymph adenopathy on the chest x-ray but the ultrasound the carotid was negative patient basically admitted to the hospital for the complaints of slurred speech with right-sided facial drooping of 48 hours duration he did take the 4 baby aspirins and he is not known to be diabetic but his blood sugar was 266, in the past patient has ongoing history of the basal cell carcinoma of the neck, essential hypertension, hyperlipidemia, and type 2 diabetes mellitus. he is not a smoker or alcohol drinker, evaluation up until now included the MRI of the brain which as documented earlier revealed left basal ganglia acute lacunar infarct in addition to 0% stenosis of the bilateral carotid bulb but also incidental finding of mediastinal lymphadenopathy raising possibility of different etiology such as lymphoma metastatic sarcoidosis, chest x-ray is negative Review of Systems Review of Systems: All systems reviewed & are unremarkable except as noted in HPI and below PMFSH Past Medical History Medical History Basal cell carcinoma of neck Essential (primary) hypertension Hyperlipidemia Type 2 diabetes mellitus Surgical History Surgical History H/O hand surgery Right pinky Family History Family History Mother Hypertension Carotid artery disease Father Family history of lung cancer Hypertension Heart disease Acute myocardial infarction Social History Social History Social History: The patient lives with his who is the durable power welding machine operator friction for healthcare. The patient desires to be a full code. The patient has no children. 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 The patient is a lifelong nonsmoker. He does not use any alcohol marijuana or illicit drugs. Smoking status: Never smoker Alcohol intake: never Substance use: never Spiritual care concerns: No Meds Home Medications and Allergies Home Medications Medication Instructions Recorded Confirmed Type pen needle, diabetic 31 gauge x #500 ea 03/20/20 12/09/20 Rx 3/16 dulaglutide 3 mg/0.5 mL 3 mg SUBCUT WEEKLY #6 ml 05/14/20 12/09/20 Rx subcutaneous pen injector losartan 100 1 tablet PO DAILY #90 tablet 09/17/20 12/09/20 Rx mg-hydrochlorothiazide 12.5 mg tablet atorvastatin 40 mg tablet 40 mg PO DAILY #90 tablet 10/15/20 12/09/20 Rx glipizide 10 mg tablet 20 mg PO BID #360 tablet 10/15/20 12/09/20 Rx metformin 1,000 mg tablet 1,500 mg PO DAILY #225 tablet 11/06/20 12/09/20 Rx amlodipine 10 mg tablet 10 mg PO DAILY #90 tablet 11/14/20 12/09/20 Rx atenolol 50 mg tablet 50 mg PO DAILY #90 tablet 11/20/20 12/09/20 Rx insulin glargine [Lantus Solostar 70 unit SUB-Q HS 12/08/20 12/09/20 History U-100 Insulin] Allergies Allergy/AdvReac Type Severity Reaction Status Date / Time No Known Allergies Allergy Verified 12/09/20 13:00 Vital Signs Vital Signs - 24 hr 12/09/20 10:45 12/09/20 10:47 12/09/20 11:00 Temperature Pulse Rate 67 69 80 Respiratory Rate 16 14 18 Blood Pressure 161/78 H Pulse Oximetry 98 97 95 12/09/20 11:01 12/09/20 11:20 12/09/20 11:30 Temperature Pulse Rate 76 69 68 Respiratory Rate 20 18 14 Blood Pressure
[2020-12-10 10:44] LABS: Total Triiodothyronine (T3) 1.23 NG/ML (0.97-1.69)
[2020-12-10 12:22] LABS: Glucose Point of Care 252 mg/dl (65-105)
[2020-12-10] MEDS: ASPIRIN 81 MG CHEWABLE TABLET 324 MG PO (13:02)
[2020-12-10] MEDS: CLOPIDOGREL BISULFATE 75 MG TABLET PO (13:03)
[2020-12-10] MEDS: atenoloL 25 MG TABLET 75 MG PO (13:03)
[2020-12-10] MEDS: INSULIN ASPART (*BKC) 100 UNITS/ML SUB-Q (13:04)
--- NOTE | 2020-12-10 15:41 | PM.DS ---
DS: Admitting Diagnosis Discharge Date In service 12/10/2020 at 10:20 a.m. Admitting Diagnosis acute CVA DS: Discharge Diagnosis Discharge Diagnosis (1) Acute CVA (cerebrovascular accident): Code(s): I63.9 - Cerebral infarction, unspecified Status: Acute Assessment and Plan: Continue with the daily aspirin. Patient had a CT this time that did show that he does have a left basilar ganglia lacunar infarction. Patient is currently an MRI. Will get an echo tomorrow. Neurology has been consulted. PT OT and speech evaluation we greatly be appreciated. The patient does have some slurred speech. 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 We are holding his metformin since he had an MRI are and CT with contrast. Continue with glipizide and sliding scale insulin. Patient is to see but is non formulary. (4) HLD (hyperlipidemia): Code(s): E78.5 - Hyperlipidemia, unspecified Status: Chronic Assessment and Plan: Continue with atorvastatin (5) DVT prophylaxis: Code(s): Z29.9 - Encounter for prophylactic measures, unspecified Status: Acute Assessment and Plan: SCD (6) LAD (lymphadenopathy), mediastinal: Code(s): R59.0 - Localized enlarged lymph nodes Status: Acute Assessment and Plan: I discussed the findings with my collaborative who recommended that we consult Pulmonary to see if the patient can get a biopsy of the mediastinal enlarged lymph node. DS: Summary Hospital Course Hospital Course: Mr. He is a 64-year-old male with past medical history of diabetes and hypertension and COVID who presented the ED for facial drooping and right-sided weakness. Patient did have an MRI that showed he had an acute stroke which presented in the smaller vessels probably from high blood pressure. Patient stated that at home his blood pressure is usually around 140s and lower if he exercises. Patient's blood pressure throughout the visit has been 160s to 170 systolic over 85-95 diastolic. Patient did have a right-sided facial droop and did work with speech therapy. Speech therapy did work with his swallowing techniques and facial strength. Labs have all been normal throughout the visit. Head CT did show an acute stroke, echo showed an EF of 65 to 70%, Head and neck CTA showed 0% stenosis in the carotid bulb. Carotid ultra sounds showed less than 50%. Currently patient is walking around in the hallways. He is wanting some out patient speech therapy. He denies chest pain, shortness of breath, nausea, vomiting, abdominal pain, constipation, or diarrhea. Status at Discharge Functional status at discharge: independent ambulation Overall status at discharge: patient is back to baseline Time Spent with Patient Time attestation: Total time spent providing and/or coordinating discharge services: 25 minutes Time spent: Less than 30 minutes Exam Const: General: cooperative, healthy appearing, comfortable, no acute distress, well developed, alert, awake and Physically active Nutritional Appearance: average body habitus and well nourished Orientation/consciousness: oriented to person, oriented to place, oriented to time and patient oriented x3 Limitations: no limitations HENMT: Head: normal to inspection, No palpable skull fracture present, normocephalic, atraumatic and o
== END 2020-12-10 15:50 | disposition home or self-care (01) | DRG 66 ==
LOC: ANHED 11:12 → ANH3MEDSUR 13:30
PROVIDERS: Nurse Practitioner; Admitting Provider Internal Medicine; Emergency Provider Emergency Medicine; PCP Internal Medicine; Visit Provider Internal Medicine
DX: I63.9 Cerebral infarction, unspecified (principal); R29.810 Facial weakness; R29.702 NIHSS score 2; R59.0 Localized enlarged lymph nodes; E11.9 Type 2 diabetes mellitus without complications; I10 Essential (primary) hypertension; E78.5 Hyperlipidemia, unspecified; Z79.4 Long term (current) use of insulin; Z79.899 Other long term (current) drug therapy; Z85.828 Personal history of other malignant neoplasm of skin; Z86.16 Personal history of COVID-19
CPT/HCPCS: 36415; 70450; 70496; 70498; 70553; 71045; 71260; 80048; 80053; 82948; 83615; 83735; 84439; 84443; 84480; 84484; 85025; 85610; 85730; 92523; 93005; 93306; 93880; 97161; 97165; 99285; A9270; A9577; G0378; J1815; Q9967

== ENCOUNTER 2020-12-18 15:00 | Outpatient (RCR) | payer OTHER, SELFPAY ==
--- NOTE | 2020-12-18 15:04 | STOPEVAL ---
SPEECH THERAPY INITIAL EVALUATION AND DISCHARGE: Thank you for referring Gold He to [facility].? Upon completion of the speech evaluation, it has been determined no further ST is warranted as outlined below. Please review, sign, date and return this evaluation/discharge BARBARA. I agree with and certify that the following plan of care is medically necessary. Referring Physician Date Attending Provider: Vandana Solorzano NP Outpatient Past Medical History Neurological History Hx Cerebrovascular Accident (CVA) Yes: 12/09/20 Cardiovascular History Hx Hypertension Yes Respiratory History Hx Respiratory Disorders No Significant History Gastrointestinal History Hx Gastrointestinal Disorders No Significant History Genitourinary History Hx Genitourinary Disorders No Significant History Musculoskeletal History Hx Fractures Yes: Left clavicle Hx Other Musculoskeletal Disorders Yes: surgery on right fifth finger Hematological History Hx Hematological Disorders No Significant History Endocrine History Hx Diabetes Yes: type 2 HEENT History Hx Sinus Problems Yes Integumentary History Hx Other Skin Disorders Yes: history skin cancer on back of neck Reproductive History Hx Reproductive Disorders No Significant History Psychosocial History Hx Psychiatric Disorders No Significant History Pain History History of Any Previous or Ongoing No Significant History Instance of Pain Anesthesia History Hx Anesthesia Reactions No Significant History Other History Hx Cancer Yes: skin cancer removed from neck bilaterally 2019 Evaluation Information Problem Diagnosis CVA 12/09/20 Additional Evaluation Detail s/s started with drooling; then facial droop & slurred speech. 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
--- NOTE | 2020-12-18 15:48 | OTOPEVAL ---
OCCUPATIONAL THERAPY INITIAL EVALUATION AND DISCHARGE 12/18/20 Gold is a 64 year-old, right handed male who had an acute CVA ~9 days ago. He presents today reporting that a lot of his hand function has returned and that he actively has been working on using his hand as much as possible. Instructed in strengthening and fine motor HEP and he demonstrates excellent return demonstration of all materials. No further skilled OT indicated at this time. Thank you for this referral. Thank you for referring Gold He to [facility]. Please review, sign, date and return this D/C Note BARBARA. I agree with and certify that the following plan of care is medically necessary. Referring Physician Date Referring Provider: Vandana Solorzano NP *OT Outpatient Evaluation Start: 12/18/20 14:49 Therapy Assessment Status Assessment Status Assessment Status Evaluation Outpatient Past Medical History Past Medical History Source of Past Medical History Recalled from Previous Visit, Confirmed with Patient/Family Neurological History Hx Cerebrovascular Accident (CVA) Yes: 12/09/20 Cardiovascular History Hx Hypertension Yes Respiratory History Hx Respiratory Disorders No Significant History Gastrointestinal History Hx Gastrointestinal Disorders No Significant History Genitourinary History Hx Genitourinary Disorders No Significant History Musculoskeletal History Hx Fractures Yes: Left clavicle Hx Other Musculoskeletal Disorders Yes: surgery on right fifth finger Hematological History Hx Hematological Disorders No Significant History Endocrine History Hx Diabetes Yes: type 2 HEENT History Hx Sinus Problems Yes Integumentary History Hx Other Skin Disorders Yes: history skin cancer on back of neck Reproductive History Hx Reproductive Disorders No Significant History Psychosocial History Hx Psychiatric Disorders No Significant History Pain History History of Any Previous or Ongoing No Significant History Instance of Pain Anesthesia History Hx Anesthesia Reactions No Significant History Other History Hx Cancer Yes: skin cancer removed from neck bilaterally 2019 Evaluation Information Problem Diagnosis CVA Onset 12/09/20 Subjective Information Patient reports that his right Query Text:As Reported By Patient/ hand has some residual Family weakness from the stroke. He reports that his hand has made progress daily. States there 's nothing I can't do, it's just uncoordinated . He is right hand dominant and has returned to being able to tie hi
== END 2021-02-11 14:35 | disposition home or self-care (01) ==
LOC: ANHOT 15:00
PROVIDERS: PCP Internal Medicine; Visit Provider Nurse Practitioner
DX: I63.9 Cerebral infarction, unspecified (principal)
CPT/HCPCS: 92522; 97110; 97165

== ENCOUNTER 2020-12-31 17:55 | Emergency (ER) | payer OTHER, SELFPAY ==
[2020-12-31 17:58] VITALS: BP 160/93; PULSE 94; RESP 19; TEMP 36.7; O2SAT 98
[2020-12-31] MEDS: diphenhydrAMINE HCl INJ 50 MG/ML VIAL 25 MG IV PUSH ×2 (18:23→20:24)
[2020-12-31] MEDS: FAMOTIDINE 20 MG/2 ML VIAL IV PUSH (18:28)
[2020-12-31] MEDS: methylPREDNISolone SOD SUCC 125 MG VIAL IV PUSH (18:28)
[2020-12-31 18:29] LABS: Basophils Percent Auto 0.2 % (0.2-1.2); Eosinophils Percent Auto 0.5 % (0-4.4); Hematocrit 48.7 % (42.0-52.0); Hemoglobin 16.6 g/dL (14.0-18.0); Immature Granulocyte Absolute 0.02 K/mm3 (0.00-0.031); Immature Granulocyte Percent A 0.3 % (0-0.5); Lymphocytes Absolute Auto 1.87 K/mm3 (0.9-3.2); Lymphocytes Percent Auto 28.6 % (18.3-44.2); Mean Corpuscular HGB Conc 34.1 g/dl (32-36); Mean Corpuscular Hemoglobin 29.9 pg (26-34); Mean Corpuscular Volume 87.7 fl (80-100); Mean Platelet Volume 10.1 fl (7.4-10.4); Monocytes Absolute Auto 0.5 K/mm3 (0.1-0.6); Monocytes Percent Auto 7.2 % (2.6-8.5); Neutrophils Absolute Auto 4.1 K/mm3 (1.3-6.7); Neutrophils Percent Auto 63.2 % (45.5-73.1); Platelet Count Result 279 k/mm3 (150-375); Red Blood Count 5.55 M/mm3 (4.6-6.20); Red Cell Distribution Width 13.8 % (11.5-14.5); White Blood Count 6.5 K/mm3 (4.5-10.0)
[2020-12-31 18:38] LABS: Anion Gap 12 mmol/L (8-16); Blood Urea Nitrogen 19 mg/dL (9-20); Calcium 9.5 mg/dL (8.4-10.2); Carbon Dioxide 24 mmol/L (22-30); Chloride 106 mmol/L (98-107); Estimated CRCL calculation 75 ml/min; Estimated Glomerular Filt Rate > 60; Glucose 163 mg/dL (65-110); Potassium 3.6 mmol/L (3.4-5.0); Sodium 142 mmol/L (137-145)
[2020-12-31 19:08] VITALS: BP 144/78; PULSE 78; RESP 12; O2SAT 98
--- NOTE | 2020-12-31 20:09 | ED.ALLEREA ---
HPI - Allergic Reaction General Chief complaint: Allergic Reaction <Royce Hunter MD - Last Filed: 12/31/20 20:14> Stated complaint: Hives <Royce Hunter MD - Last Filed: 12/31/20 20:14> Time Seen by Provider: 12/31/20 18:09 <Royce Hunter MD - Last Filed: 12/31/20 20:14> Source: patient <Royce Hunter MD - Last Filed: 12/31/20 20:14> Mode of arrival: ambulatory <Royce Hunter MD - Last Filed: 12/31/20 20:14> Limitations: no limitations <Royce Hunter MD - Last Filed: 12/31/20 20:14> History of Present Illness HPI narrative: 65-year-old with a history of CVA, diabetes, idiopathic urticaria here with complaints of rash on his face and extremities started this morning. Patient states that he has seen his primary doctor was given steroid injection and was sent home. Patient states that his symptoms got worse and is here he has no difficulty breathing or swallowing he states his upper lip is swollen. No new change in medication. <Royce Hunter MD - Last Filed: 12/31/20 20:14> MD complaint: hives and facial swelling <Royce Hunter MD - Last Filed: 12/31/20 20:14> Onset (ago): day(s) (1) <Royce Hunter MD - Last Filed: 12/31/20 20:14> Symptoms: rash <Royce Hunter MD - Last Filed: 12/31/20 20:14> Severity: moderate <Royce Hunter MD - Last Filed: 12/31/20 20:14> Treatment prior to arrival: steroids <MD Eligio Carlisle Last Filed: 12/31/20 20:14> Previous Allergic Reaction History: prior ED visit(s) <Royce Hunter MD - Last Filed: 12/31/20 20:14> Related Data Home medications: Home Medications Medication Instructions Recorded Confirmed Lantus Solostar U-100 Insulin 70 unit SUB-Q HS 12/08/20 12/31/20 clopidogrel 75 mg tablet 75 mg PO QAM tablet 12/31/20 12/31/20 <Royce Hunter MD - Last Filed: 12/31/20 20:14> Allergies/adverse reactions: Allergies Allergy/AdvReac Type Severity Reaction Status Date / Time No Known Allergies Allergy Verified 12/31/20 09:40 <Royce Hunter MD - Last Filed: 12/31/20 20:14> Review of Systems Review of Systems: All systems reviewed & are unremarkable except as noted in HPI and below <Royce Hunter MD - Last Filed: 12/31/20 20:14> Constitutional: Constitutional: Reports no additional constitutional complaints <Royce Hunter MD - Last Filed: 12/31/20 20:14> Eyes: Eyes: Reports no additional eye complaints <Royce Hunter MD - Last Filed: 12/31/20 20:14> ENT: Reports system reviewed and no additional complaints, except as documented <Royce Hunter MD - Last Filed: 12/31/20 20:14> Cardiovascular: Cardiovascular: Reports no additional cardiovascular complaints <Royce Hunter MD - Last Filed: 12/31/20 20:14> Respiratory: Respiratory: Reports no additional respiratory complaints <Royce Hunter MD - Last Filed: 12/31/20 20:14> Gastrointestinal: Gastrointestinal: Reports no additional gastrointestinal complaints <Royce Hunter MD - Last Filed: 12/31/20 20:14> Musculoskeletal: Musculoskeletal: Reports no additional musculoskeletal complaints <Royce Hunter MD - Last Filed: 12/31/20 20:14> Integumentary/Breasts: Skin/Breast: Reports as per HPI <Royce Hunter MD - Last Filed: 12/31/20 20:14> Neurologic: Reports system reviewed and no additional complaints, except as documented <Royce Hunter MD - Last Filed: 12/31/20 20:14> Psychiatric: Psychiatric: Reports no additional psychiatric complaints <Royce Hunter MD - Last Filed: 12/31/20 20:14> Endocrine: Endocrine: Reports no additional endocrine complaints <Royce Hunter MD - Last Filed: 12/31/20 20:14> Hematologic/Lymphatic: Hematologic/Lymphatic: Reports no additional hematologic/lymphatic complaints <Royce Hunter MD - Last Filed: 12/31/20 20:14> PMFSH Past Medical History Medical History: Medical History Basal cell
[2020-12-31 21:21] VITALS: BP 140/74; PULSE 80; RESP 18; O2SAT 100
[2020-12-31] MEDS: EPINEPHrine HCL INJ 1 MG/ML AMPUL 0.3 MG IM (22:37)
[2021-01-01] VITALS: BP 124/76; PULSE 74; RESP 18; O2SAT 99
== END 2021-01-01 00:01 | disposition home or self-care (01) ==
PROVIDERS: Family Medicine; Emergency Provider Emergency Medicine; PCP Internal Medicine
DX: L50.9 Urticaria, unspecified (principal); E11.9 Type 2 diabetes mellitus without complications; I10 Essential (primary) hypertension; E78.5 Hyperlipidemia, unspecified; Z85.828 Personal history of other malignant neoplasm of skin; Z79.82 Long term (current) use of aspirin; Z79.4 Long term (current) use of insulin; Z79.84 Long term (current) use of oral hypoglycemic drugs; Z79.899 Other long term (current) drug therapy
CPT/HCPCS: 36415; 80048; 85025; 96374; 96375; 96376; 99284; J0171; J1200; J2930

== ENCOUNTER 2021-02-01 06:35 | Outpatient (CLI) | payer OTHER, SELFPAY ==
[2021-02-01 08:38] LABS: Hemoglobin A1C 7.1 % (<5.7)
== END 2021-02-01 06:36 | disposition home or self-care (01) ==
LOC: ANHLAB 06:39
PROVIDERS: PCP Internal Medicine; Visit Provider Nurse Practitioner
DX: E11.9 Type 2 diabetes mellitus without complications (principal)
CPT/HCPCS: 36415; 83036

== ENCOUNTER → 2021-03-15 10:50 | Outpatient (CLI) | payer OTHER, SELFPAY ==
--- NOTE | ~2021-03-15 | CT_ITS ---
EXAMINATION: CT chest high resolution w con EXAM DATE: 03/15/2021 11:26 INDICATION: R59.0 - Localized enlarged lymph nodes . TECHNIQUE: Spiral CT of the chest following intravenous injection of 75 mL Omnipaque 350. HRCT. Axial , coronal and sagittal images of the chest were reviewed. Coronal maximum intensity pixel images of chest reviewed. The dose-length product (DLP) for this examination was 604.57 mGy-cm. The exposure was tailored according to patient size (auto mA exposure control), and iterative reconstruction (ASIR ) was used as additional dose reduction technique. Comparison is made to prior examination from 2020. FINDINGS: Again there are multiple pathologically enlarged mediastinal and hilar lymph nodes with sharona e central calcification within many of them, which is typically seen with granulomatous process assum ing patient does not have treated lymphoma. One of the larger lymph nodes in precarinal location manoj ures 2.5 x 1.7 cm, is unchanged in size and appearance. No central pulmonary emboli. No interstitial lung disease on the HRCT. Linear right middle lobe atelectasis. Right upper lobe pleural-based 4 mm g ranuloma unchanged. There are no pleural or pericardial effusions. Tracheobronchial tree is patent . There is no pneumothorax. Heart normal in size. There may be coronary artery stents. Poss ible incompletely imaged periportal lymphadenopathy unchanged. There is thoracic spondylosis without osteoblastic or osteolytic lesions identified. IMPRESSION: Stable mediastinal and hilar lymphadenopathy with calcification pattern typically seen in granulomatous process such as sarcoidosis, histoplasmosis or other fungal infection, tuberculosis, s ilicosis. Consider longer interval 6-12 month follow-up CT Reviewed, dictated and finalized at location B. BOTOMY TECH IMPRESSION: Stable mediastinal and hilar lymphadenopathy with calcification pat tern typically seen in granulomatous process such as sarcoidosis, histoplasmosi s or other fungal infection, tuberculosis, silicosis. Consider longer interval 6-12 month follow-up CT
[2021-03-15 11:15] LABS: Estimated Glomerular Filt Rate > 60
== END ==
PROVIDERS: PCP Internal Medicine; Visit Provider Nurse Practitioner
DX: R59.0 Localized enlarged lymph nodes (principal)
CPT/HCPCS: 71260; Q9967

== ENCOUNTER 2021-05-11 07:03 | Outpatient (CLI) | payer OTHER, SELFPAY ==
[2021-05-11 07:45] LABS: Potassium 3.2 mmol/L (3.4-5.0)
[2021-05-11 07:46] LABS: Anion Gap 8 mmol/L (8-16); Blood Urea Nitrogen 20 mg/dL (9-20); Calcium 9.3 mg/dL (8.4-10.2); Carbon Dioxide 29 mmol/L (22-30); Chloride 100 mmol/L (98-107); Cholesterol 143 mg/dL (0-200); Estimated Glomerular Filt Rate > 60; Glucose 118 mg/dL (65-110); HDL Direct 28 mg/dL; Sodium 137 mmol/L (137-145); Triglycerides 235 mg/dL (<150)
[2021-05-11 07:51] LABS: Hemoglobin A1C 7.2 % (<5.7)
[2021-05-11 07:55] LABS: LDL Cholesterol Direct 65 mg/dL
== END 2021-05-11 07:04 | disposition home or self-care (01) ==
LOC: ANHLAB 07:05
PROVIDERS: PCP Internal Medicine; Visit Provider Internal Medicine
DX: E11.9 Type 2 diabetes mellitus without complications (principal)
CPT/HCPCS: 36415; 80048; 80061; 83036

== ENCOUNTER 2021-09-07 06:55 | Outpatient (CLI) | payer OTHER, SELFPAY ==
[2021-09-07 07:29] LABS: Basophils Percent Auto 0.5 % (0.2-1.2); Eosinophils Absolute Auto 0.2 K/mm3 (0-0.3); Eosinophils Percent Auto 2.9 % (0-4.4); Hematocrit 43.4 % (42.0-52.0); Hemoglobin 14.5 g/dL (14.0-18.0); Immature Granulocyte Absolute 0.03 K/mm3 (0.00-0.031); Immature Granulocyte Percent A 0.4 % (0-0.5); Lymphocytes Absolute Auto 1.85 K/mm3 (0.9-3.2); Lymphocytes Percent Auto 24.2 % (18.3-44.2); Mean Corpuscular HGB Conc 33.4 g/dl (32-36); Mean Corpuscular Hemoglobin 29.4 pg (26-34); Mean Corpuscular Volume 87.9 fl (80-100); Mean Platelet Volume 10.3 fl (7.4-10.4); Monocytes Absolute Auto 0.7 K/mm3 (0.1-0.6); Monocytes Percent Auto 9.7 % (2.6-8.5); Neutrophils Absolute Auto 4.8 K/mm3 (1.3-6.7); Neutrophils Percent Auto 62.3 % (45.5-73.1); Platelet Count Result 261 k/mm3 (150-375); Red Blood Count 4.94 M/mm3 (4.6-6.20); Red Cell Distribution Width 13.9 % (11.5-14.5); White Blood Count 7.7 K/mm3 (4.5-10.0)
[2021-09-07 07:35] LABS: Alanine Aminotransferase 40 U/L (6-50); Albumin Level 4.4 g/dL (3.5-5.1); Alkaline Phosphatase 51 U/L (38-126); Anion Gap 7 mmol/L (8-16); Aspartate Amino Transferase 35 U/L (17-59); Bilirubin,Total 1.6 mg/dL (0.2-1.3); Blood Urea Nitrogen 22 mg/dL (9-20); Calcium 8.8 mg/dL (8.4-10.2); Carbon Dioxide 29 mmol/L (22-30); Chloride 102 mmol/L (98-107); Cholesterol 139 mg/dL (0-200); Estimated Glomerular Filt Rate > 60; Glucose 157 mg/dL (65-110); HDL Direct 31 mg/dL; Hemoglobin A1C 7.1 % (<5.7); Potassium 3.7 mmol/L (3.4-5.0); Sodium 138 mmol/L (137-145); Triglycerides 264 mg/dL (<150)
[2021-09-07 07:46] LABS: LDL Cholesterol Direct 53 mg/dL
[2021-09-07 08:06] LABS: Prostate Specific Antigen 0.7 ng/mL (< OR = 4.0)
[2021-09-07 08:35] LABS: MALB Creatinine Ratio 46.4 mg/g (0-30); Microalbumin Urine Random 88.6 mg/L (0-16.7)
== END 2021-09-07 06:56 | disposition home or self-care (01) ==
LOC: ANHLAB 06:56
PROVIDERS: PCP Internal Medicine; Visit Provider Internal Medicine
DX: E11.9 Type 2 diabetes mellitus without complications (principal); Z79.4 Long term (current) use of insulin; Z12.5 Encounter for screening for malignant neoplasm of prostate
CPT/HCPCS: 36415; 80053; 80061; 82043; 83036; 84153; 85025; G0103

== ENCOUNTER 2021-12-06 06:51 | Outpatient (CLI) | payer OTHER, SELFPAY | END 2021-12-06 06:52 | disposition home or self-care (01) | LOC: ANHLAB 06:53 | PROVIDERS: PCP Internal Medicine; Visit Provider Internal Medicine | DX: E11.9 Type 2 diabetes mellitus without complications (principal); Z79.4 Long term (current) use of insulin | CPT/HCPCS: 36415; 83036 ==

== ENCOUNTER 2022-04-11 08:25 | Outpatient (CLI) | payer OTHER, SELFPAY ==
[2022-04-11 09:10] LABS: Alanine Aminotransferase 43 U/L (6-50); Albumin Level 4.7 g/dL (3.5-5.1); Alkaline Phosphatase 58 U/L (38-126); Anion Gap 9 mmol/L (8-16); Aspartate Amino Transferase 34 U/L (17-59); Blood Urea Nitrogen 26 mg/dL (9-20); Calcium 8.7 mg/dL (8.4-10.2); Carbon Dioxide 27 mmol/L (22-30); Chloride 103 mmol/L (98-107); Estimated Glomerular Filt Rate > 60; Glucose 101 mg/dL (65-110); Potassium 3.2 mmol/L (3.4-5.0); Sodium 139 mmol/L (137-145)
[2022-04-11 09:51] LABS: Hemoglobin A1C 6.8 % (<5.7)
[2022-04-11 10:01] LABS: Creatinine Urine 197.1 mg/dL
[2022-04-11 10:19] LABS: MALB Creatinine Ratio 47.9 mg/g (0-30); Microalbumin Urine Random 94.5 mg/L (0-16.7)
[2022-04-16 15:47] LABS: Testosterone Free 40.2 pg/mL (35.0-155.0); Testosterone Total 314 ng/dL (250-1100)
== END 2022-04-11 08:26 | disposition home or self-care (01) ==
LOC: ANHLAB 08:27
PROVIDERS: PCP Internal Medicine; Visit Provider Internal Medicine
DX: E11.9 Type 2 diabetes mellitus without complications (principal); E29.1 Testicular hypofunction
CPT/HCPCS: 36415; 80053; 82043; 83036; 84402; 84403

== ENCOUNTER 2024-09-01 08:40 | Outpatient (CLI) | payer MEDICARE, SELFPAY ==
--- NOTE | ~2024-09-01 | CT_ITS ---
Clinical Indication: Lymphadenopathy CT Scan of the Chest with Contrast: Technique: Contiguous sections were acquired throughout the chest after intravenous administration of 75 cc of Omnipaque 350. Dose reduction technique was used on this scan by utilizing automated exposu re control and iterative reconstruction technique. The dose-length product (DLP) was 613.73 mGy-cm. COMPARISON: 03/15/2021 Findings: Mediastinal and bilateral hilar lymphadenopathy similar to prior exam, with several demonstrating jeovany tral calcification. No axillary lymphadenopathy. There is no filling defect in the pulmonary arterial tree to suggest pulmonary embolus. There is no evidence of aortic dissection or aneurysm. There is no evidence of pleural or pericardial effusion. 8 mm medial right upper lobe nodule with central calcification is unchanged (axial image 44). Linear scarring or atelectasis right middle lobe. Images through the upper abdomen reveal no abnormalities. Impression: Stable mediastinal and hilar lymphadenopathy, most compatible with sarcoid versus other granulomatous disease. Stable subcentimeter medial right upper lobe pulmonary nodule. Reviewed, dictated and finalized at [facility]. Impression: Stable mediastinal and hilar lymphadenopathy, most compatible with sarcoid vers us other granulomatous disease. Stable subcentimeter medial right upper lobe pulmonary nodule.
[2024-09-01 09:02] LABS: Estimated Glomerular Filt Rate 55
== END 2024-09-01 08:41 | disposition home or self-care (01) ==
LOC: MICIMG 08:40
PROVIDERS: PCP Internal Medicine; Visit Provider Internal Medicine
DX: R59.0 Localized enlarged lymph nodes (principal); R91.1 Solitary pulmonary nodule
CPT/HCPCS: 71260; Q9967